=== PATIENT | female | born 1970 | race American Indian/Alaskan Native ===

== ENCOUNTER 2021-08-06 09:17 | Emergency (ER) | payer SELFPAY ==
[2021-08-06] MEDS ORDERED: HYDROcodone/ACETAMINOPHEN 5-325 MG TAB PO ONE (11:09)
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
[2021-08-06 13:51] VITALS: BP 140/74
== END 2021-08-06 13:50 | disposition home or self-care (01) ==
LOC: ED 09:17
DX: S20.211A Contusion of right front wall of thorax, initial encounter (principal); M54.9 Dorsalgia, unspecified; V89.2XXA Person injured in unspecified motor-vehicle accident, traffic, initial encounter; E11.8 Type 2 diabetes mellitus with unspecified complications; Y93.89 Activity, other specified; Y92.89 Other specified places as the place of occurrence of the external cause; Y99.8 Other external cause status
CPT/HCPCS: 72040; 72070; 99283

== ENCOUNTER 2021-08-18 10:33 | Emergency (ER) | payer OTHER ==
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
--- NOTE | 2021-08-18 11:32 | XRay Report ---
CHEST 2 VIEWS INDICATION / CLINICAL INFORMATION: Chest pain.. COMPARISON: 08/06/21 FINDINGS: SUPPORT DEVICES: None. HEART / MEDIASTINUM: No significant abnormality. LUNGS / PLEURA: No significant pulmonary or pleural abnormality. No pneumothorax. ADDITIONAL FINDINGS: No significant additional findings. IMPRESSION: 1. No acute findings. Signer Name: Marie He MD Signed: 08/18/2021 11:27 AM Workstation Name: [id number]
[2021-08-18 12:10] VITALS: BP 123/51
== END 2021-08-18 12:10 | disposition home or self-care (01) ==
LOC: ED 10:33
DX: R07.89 Other chest pain (principal); N63.11 Unspecified lump in the right breast, upper outer quadrant; E11.9 Type 2 diabetes mellitus without complications; V87.7XXD Person injured in collision between other specified motor vehicles (traffic), subsequent encounter
CPT/HCPCS: 71046; 99283

== ENCOUNTER 2021-08-19 19:36 | Emergency (ER) | payer OTHER ==
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
[2021-08-20 04:01] VITALS: BP 126/78
== END 2021-08-20 04:02 | disposition home or self-care (01) ==
LOC: ED 19:36
DX: S20.01XD Contusion of right breast, subsequent encounter (principal); V89.2XXD Person injured in unspecified motor-vehicle accident, traffic, subsequent encounter; E11.9 Type 2 diabetes mellitus without complications
CPT/HCPCS: 99283